=== PATIENT | female | born 2005 | race Caucasian/White ===

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

== ENCOUNTER → 2024-01-12 | Outpatient (CLI) | payer BC | END | disposition home or self-care (01) | LOC: US 01-11 10:00 | PROVIDERS: ATTEND Nurse Practitioner Women's Health | DX: D24.2 Benign neoplasm of left breast (principal); N63.22 Unspecified lump in the left breast, upper inner quadrant ==

== ENCOUNTER → 2024-11-09 | Outpatient (CLI) | payer BC | END | disposition home or self-care (01) | LOC: CT 02:29 | PROVIDERS: ATTEND Family Medicine | DX: R51.9 Headache, unspecified (principal) ==